=== PATIENT | male | born 1960 | race Caucasian/White ===

== ENCOUNTER 2017-06-04 17:43 | Inpatient (IN) | payer BC ==
[~2017-06-04] VITALS: Ht 188 cm; Wt 138.8 kg
--- NOTE | ~2017-06-04 | HEMODYNAMI ---
PATIENT:JOÃO ARAUJO MEDICAL RECORD: [id number] : 60 LOCATION:[address] [id number] ADMISSION DATE: 06/06/17 Generatedon:06/07/201714:06 Patient name: JOÃO ARAUJO Patient #: [id number] SSN: : 1960 Date of study: 06/07/2017 Page: Of Hemodynamic Procedure Report Patient Data Patient Demographics Procedure consent was obtained First Name: JOÃO Gender: Male Last Name: VAN : 1960 Patient #: [id number] Age: 56 year(s) Race: Unknown Additional ID: [id number] Contact details [address]: [address] [place] [address] State: [place] City: [place] Zip code: [address] Past Medical History Allergies Allergen Reaction Date Comments Reported Other allergy 06/07/2017 N Admission Admission Data Admission Date: 06/06/2017 Admission Time: 12:52 Room #: D2105 Lab Results Lab Result Date: 06/07/2017 Lab Result Time: 0:00 Biochemistry Name Units Result Min Max BUN mg/dl 26 --(----)-* 7 18 Creatinine mg/dl 1.3 --(---*)-- 0.6 1.3 CBC Name Units Result Min Max Hemoglobin g/dl 12 *-(----)-- 13.5 17.5 Procedure Procedure Types Cath Procedure Diagnostic Procedure LHC [facility] w/Coronaries Miscellaneous Procedures Moderate Sedation up to 30 minutes Procedure Description Procedure Date Procedure Date: 06/07/2017 Procedure Start Time: 13:52 Procedure End Time: 14:05 Procedure Staff Name Function Lalit Pierson MD Performing Physician Tash Pastrana RT Scrub João Balbuena RN Nurse Zach Bañuelos RN Collection Systems Technician Gio Garcia RT Monitor Karine Vo RT Monitor Procedure Data Cath Procedure Fluoroscopy Diagnostic fluoroscopy Total fluoroscopy Time: 1.7 time: 1.7 min min Diagnostic fluoroscopy Total fluoroscopy dose: 722 dose: 722 mGy mGy Contrast Material Contrast Material Type Amount (ml) Isovue 300 75 Entry Location Entry Primary Successful Side Size Upsize Upsize Entry Closure Barker ccessful Closure Location (Fr) 1 (Fr) 2 (Fr) Remarks Device Remarks Radial Right 6 Fr Mechanical artery Short Compression Estimated blood loss: 5 ml Diagnostic catheters Device Type Used For End Catheter Placement DIAGNOSTIC Ronald 110cm Multi-vessel 5Fr catheter ([id number]) Angiography Procedure Complications No complications Procedure Medications Medication Administration Route Dosage 0.9% NaCl I.V. 100 ml/hr Oxygen NC 2 l/min Heparin Flush Bag added to field 2 bags (1000units/500ml NS) Lidocaine 2% added to field 20 Radial Cocktail added to field 1 syringe (Verapomil 2mg/Nitro 400mcg/Heparin 1500units) Versed I.V. 2 mg Fentanyl I.V. 100 mcg Radial Cocktail I.A. 1 syringe (Verapomil 2mg/Nitro 400mcg/Heparin 1500units) Hemodynamics Rest HGB: 12 (g/dl) Heart Rate: 88 (bpm) Pressure Samples Time Site Value (mmHg) Purpose Heart Use Rate(bpm) 13:57 LV 64/7,-8 Snapshot 72 13:58 AO 135/72(96) Pullback 86 13:58 LV 143/-4,15 Pullback 86 Gradients Valve Time Site 1 Site 2 Mean SEP/DFP Peak To Heart Use (mmHg) (sec/min) Peak Rate (mmHg) (bpm) Aortic 13:58 LV AO 13 20 8 86 143/-4,15 135/72(96) Calculations Valve P-P Mean Valve Index Valve Source Name Gradient Area Flow (cm2) Aortic 8 13 8 13 Snapshots Pre Cath Intra NCS Post Cath Vital Signs Time Heart Resp SPO2 etCO2 NIBP (mmHg) Rhythm Pain Sedation Rate (ipm) (%) (mmHg) Status Level (bpm) 13:48:24 90 19 96 37 163/95(133) NSR 0 (11) 10(A) , No pain 13:54:18 91 18 93 41.6 162/89(131) NSR 0 (11) 10(A) , No pain 13:59:07 77 19 92 40.8 130/66(95) NSR 0 (11) 10(A) , No pain 14:03:49 71 11 96 39.2 109/59(74) NSR 0 (11) 10(A) , No pain Medications Time Medication Route Dose Verified Delivered Reason Notes Effectiveness by by 13:47:49 0.9% NaCl I.V. 100 João João Per ml/hr Esha Balbuena physician RN RN 13:48:03 Oxygen NC 2 l/min João João Per Esha Balbuena physician RN RN 13:48:14 Heparin Flush added 2 bags João João used for Bag to Lorigan Esha procedure (1000units/500ml field RN RN NS) 13:48:28 Lidocaine 2% added 20ml João João for local to vial Lorigan Esha anesthetic field RN RN 13:48:47 Radial Cocktail added 1 João João used for (Verapomil to syringe Azizaigan Esha procedure 2mg/Nitro field RN RN 400mcg/Heparin 1500units) 13:55:42 Versed I.V. 2 mg João João for sedation Esha Balbuena RN RN 13:55:57 Fentanyl I.V. 100 mcg João João for sedation Esha Balbuena RN RN 13:56:09 Radial Cocktail I.A. 1 João Lalit for (Verapomil syringe Azizaigan Dangelo FRANCISCO vasodilation 2mg/Nitro RN 400mcg/Heparin 1500units) Procedure Log Time Note 13:06:00 Tash Pastrana RT(R) sent for patient. Start room use. 13:06:12 Time tracking: Regular hours 13:06:15 Plan of Care:Hemodynamics will remain stable., Cardiac rhythm will remain stable., Comfort level will be maintained., Respiratory function will remain adequate., Patient/ family verbilizes understanding of procedure., Procedure tolerated without complication., Recovers from procedure without complications.. 13:35:17 Patient received from PCU to CCL 1 Alert and oriented. Tansferred to table in Supine position. 13:35:18 Warm blankets applied, and keeley hugger turned on for patient comfort. 13:35:18 Correct patient and procedure confirmed by team. 13:35:19 Signed procedure consent form obtained from patient. 13:35:20 ECG and BP/O2 sat monitors applied to patient. 13:35:29 H&P Date Dictated: 06/05/2017 Within 30 days and on chart.. 13:35:31 Pre-procedure instructions explained to patient. 13:35:31 Pre-op teaching completed and patient verbalized understanding. 13:35:33 Family in patients room. 13:35:35 Patient NPO since Breakfast. 13:35:56 Patient allergic to Other allergyPCN 13:44:24 Is the patient allergic to Iodine/contrast media? No. 13:44:25 Was the patient premedicated? No 13:44:26 Is patient on blood thinner?No 13:44:27 Patient diabetic? Yes. 13:44:29 If diabetic: On Metformin? No 13:44:31 Previous problem with sedation/anesthesia? No ? 13:44:34 Snore? Yes 13:44:37 Sleep apnea? Yes 13:44:38 Deviated septum? No 13:44:39 Opens mouth fully? Yes 13:44:40 Sticks out tongue? Yes 13:44:42 Airway obstruction? No ? 13:44:47 Dentures? No ? 13:44:50 Pre procedure: right dorsailis pedis pulse 1+ Palpable, but thready & weak; easily obliterated 13:44:54 Pre procedure: left dorsailis pedis pulse 1+ Palpable, but thready & weak; easily obliterated 13:44:58 Patient pain scale 0/10 ?. 13:45:08 IV patent on arrival in left forearm with 0.9% NaCl at [facility]. 13:45:32 Lab Result : BUN 26 mg/dl 13:45:32 Lab Result : Creatinine 1.3 mg/dl 13:45:32 Lab Result : Hemoglobin 12 g/dl 13:45:36 Lab results completed and on chart. 13:45:43 Right Radial & Right Groin area was prepped with chlora-prep and draped in sterile fashion 13:45:44 Alarms reviewed by R. N. 13:45:46 Sharps counted by scrub and verified by R.N. 13:47:17 Baseline sample Acquired. 13:47:19 Vital chart was started 13:47:24 Rhythm: sinus rhythm 13:47:28 Use device set Radial Dx or PCI 13:47:29 ACIST Syringe (74453) opened to sterile field. 13:47:30 Medline Cath Pack ([id number]) opened to sterile field. 13:47:30 Bag Decanter (2002S) opened to sterile field. 13:47:31 SHEATH 6FR Slender ([id number]) opened to sterile field. 13:47:31 DIAGNOSTIC WIRE .035 260cm J wire ([id number]) opened to sterile field. 13:47:33 ACIST Hand Control (67166) opened to sterile field. 13:47:33 ACIST Manifold (75020) opened to sterile field. 13:47:38 TR BAND Large ([id number]) opened to sterile field. 13:47:49 0.9% NaCl 100 ml/hr I.V. was administered by João Balbuena RN; Per physician; 13:48:03 Oxygen 2 l/min NC was administered by João Balbuena RN; Per physician; 13:48:14 Heparin Flush Bag (1000units/500ml NS) 2 bags added to field was administered by João Balbuena RN; used for procedure; 13:48:28 Lidocaine 2% 20ml vial added to field was administered by João Balbuena RN; for local anesthetic; 13:48:47 Radial Cocktail (Verapomil 2mg/Nitro 400mcg/Heparin 1500units) 1 syringe added to field was administered by João Balbuena RN; used for procedure; 13:50:52 Zero performed for pressure channel P1 13:51:09 Right Radial & Right Groin site verified by team. 13:51:27 Physical assessment completed. ASA score P 2 - A patient with mild systemic disease as per Lalit Pierson MD. 13:51:33 --------ALL STOP TIME OUT------ 13:51:52 Sedation plan: IV Moderate Sedation Medication:Versed, Fentanyl 13:51:57 Final Timeout: patient, procedure, and site verified with staff and physician. All members of the team are in agreement. 13:52:44 Procedure started. 13:52:44 Full Disclosure recording started 13:52:58 Local anesthetic to right radial artery with Lidocaine 2% by Lalit Pierson MD.INITIAL ACCESS ONLY 13:53:13 A 6 Fr Short sheath was inserted into the Right Radial artery 13:54:43 A DIAGNOSTIC Ronald 110cm 5Fr catheter ([id number]) was advanced over the wire and used for Multi-vessel Angiography. 13:55:42 Versed 2 mg I.V. was administered by João Balbuena RN; for sedation; 13:55:57 Fentanyl 100 mcg I.V. was administered by João Balbuena RN; for sedation; 13:56:09 Radial Cocktail (Verapomil 2mg/Nitro 400mcg/Heparin 1500units) 1 syringe I.A. was administered by Lalit Pierson MD; for vasodilation; 13:57:41 LV hemodynamics recorded. 13:57:44 LV gram done using ARGUETA 13:57:47 Injector settings: Ml/sec: 5, Volume: 15, 13:57:53 EF : 55 % 13:58:48 LCA angiography performed. 13:58:52 Injector settings: Ml/sec: 3, Volume: 6, 14:00:14 RCA angiography performed. 14:00:17 Injector settings: Ml/sec: 3, Volume: 6, 14:01:25 Catheter removed. 14:01:50 Sheath removed intact; hemostasis achieved with Mechanical Compression to the Right Radial artery. 14:01:53 Procedure ended.(Physican Out) 14:04:21 Fluoroscopy time 01.70 minutes. 14:04:26 Fluoroscopy dose: 722 mGy 14:04:26 Flurop Dose total: 722 14:04:34 Contrast amount:Isovue 300 75ml. 14:04:35 Sharps counted by scrub and verified by R.N. 14:04:38 TR band inflated with 10cc of air. 14:04:40 Insertion/operative site no bleeding no hematoma. 14:04:44 Post right radial artery:stable 14:04:46 Post Procedure Pulses reassessed and unchanged 14:04:49 Post procedure rhythm: unchanged. 14:04:52 Estimated blood loss: 5 ml 14:04:53 Post procedure instruction explained to patient.Patient verbalizes understanding. 14:04:54 Patient needs reinforcement of post procedure teaching. 14:05:06 Procedure type changed to Cath procedure, Diagnostic procedure, LHC, LHC w/Coronaries, Miscellaneous Procedures, Moderate Sedation up to 30 minutes 14:05:06 Procedure and supply charges have been captured, reviewed, submitted and are correct. 14:05:11 Procedure Complication : No complications 14:05:14 Vital chart was stopped 14:05:14 See physician's report for complete and final results. 14:05:17 Report given to [facility]. 14:05:20 Patient transfered to [facility] with Stretcher. 14:05:22 Procedure ended. 14:05:22 Full Disclosure recording stopped 14:05:46 End room use (Document Last) Device Usage Item Name Manufacture Quantity Catalog Hospital Part Current Minimal Lot# / Number Charge Number Stock Stock Serial# Code ACIST Acist 1 88129 057629 372425 670217 20 Syringe Medical (40880) Systems Inc Medline Cath Cardinal 1 [id number] 729732 78187 723954 5 Pack Health ([id number]) Bag Decanter Microtek 1 2001S 720584 42284 233369 5 (2001S) Medical Inc. SHEATH 6FR Terumo 1 [id number] 521344 755524 577381 40 Slender ([id number]) DIAGNOSTIC St Ananda 1 012830 668198 901183 613091 30 WIRE .035 260cm J wire (189892) ACIST Hand Acist 1 34579 072037 025801 725533 5 Control Medical (22596) Systems Inc ACIST Acist 1 94789 605254 014132 783734 5 Manifold Medical (79999) Systems Inc TR BAND Terumo 1 [id number] 408210 251613 435730 40 Large ([id number]) DIAGNOSTIC Terumo 1 40-8585 385824 132027 799362 5 Ronald 110cm 5Fr catheter (947528) Signature Audit [place] Stage Time Signature Unsigned Intra-Procedure 06/07/2017 Tash Victoriano 2:06:19 PM RT(R) Signatures Monitor : Gio Garcia RT Signature : Date : Time : Monitor : Karine Vo Signature : RT Date : Time : [address], [place] [address]
[2017-06-04 18:54] LABS: BASOPHILS 0.3 % (0-2); EOSINOPHILS 6.3 % (0-7); HEMOGLOBIN 12.3 g/dL (13.5-17.5); IMMATURE GRANULOCYTES 0.1 % (0-5); LYMPHOCYTES 22.8 % (15-50); MCH 29.7 pg (26.0-34.0); MCHC 32.4 g/dL (31.0-37.0); MCV 91.8 fL (80.0-100.0); MEAN PLATELET VOLUME 10.6 fL (7.4-10.4); MONOCYTES 8.7 % (2-11); NEUTROPHILS 61.8 % (40-80); RBC 4.14 10x6/uL (4.20-6.10); WBC 9.3 10x3/uL (4.8-10.8)
[2017-06-04 19:10] LABS: ALBUMIN 3.2 g/dL (3.4-5.0); BILIRUBIN - TOTAL 0.8 mg/dL (0.2-1.3); CALCIUM 9.3 mg/dL (8.5-10.1); CREATININE - SERUM 1.5 mg/dL (0.6-1.3)
[2017-06-04 19:11] LABS: PLATELET COUNT 190 10x3/uL (130-400)
[2017-06-04 19:18] LABS: TROPONIN-I 0.019 ng/mL (0.000-0.060)
[2017-06-04 20:04] LABS: APPEARANCE CLEAR (CLEAR); BILIRUBIN NEGATIVE (NEGATIVE); COLOR YELLOW (YELLOW); GLUCOSE 1000 mg/dL (NEGATIVE); KETONE NEGATIVE (NEGATIVE); NITRITE NEGATIVE (NEGATIVE); PROTEIN 2+ mg/dL (NEGATIVE); SPECIFIC GRAVITY 1.015 (1.005-1.020); UROBILINOGEN NORMAL (NORMAL)
[2017-06-04 20:07] LABS: BACTERIA FEW /hpf (NONE SEEN); RED CELLS - URINE OCC /hpf (0-5)
[2017-06-04 20:13] LABS: INR 1.04 (0.85-1.17); PROTIME 13.2 SECONDS (11.6-15.0)
[2017-06-04 20:15] LABS: D-DIMER-QUANTITATIVE 0.75 ug/mLFEU (0.20-0.54)
[2017-06-04 20:28] LABS: CKMB 6.6 U/L (0.0-3.6); CREATINE KINASE 482 UL (21-232)
[2017-06-05] MEDS ORDERED: FUROSEMIDE20 MG PO (01:57)
[2017-06-05] MEDS ORDERED: K-TAB10 MEQ PO (01:57)
[2017-06-05] MEDS ORDERED: LIPITOR80 MG PO (01:58)
[2017-06-05] MEDS ORDERED: ZITHROMAX250 MG PO (01:58)
[2017-06-05] MEDS ORDERED: NORVASC10 MG PO (01:58)
[2017-06-05] MEDS ORDERED: NOVOLOG INJ FLE (01:59)
[2017-06-05] MEDS ORDERED: TRESIBA FLEX INJ 200 SQ (01:59)
[2017-06-05] MEDS ORDERED: JARDIANCE25 MG PO (02:00)
[2017-06-05] MEDS ORDERED: FARXIGA10 MG PO (02:00)
[2017-06-05] MEDS ORDERED: LISINOPRIL TAB 20M PO (02:00)
[2017-06-05] MEDS ORDERED: PRAVACHOL80 MG PO (02:00)
[2017-06-05] MEDS ORDERED: LOPID600 MG PO (02:01)
[2017-06-05 02:13] VITALS: BP 167/85; BMI 42.3
[2017-06-05 04:00] VITALS: BP 167/85
[2017-06-05 08:04] VITALS: BP 169/71
[2017-06-05 12:23] VITALS: BP 135/58
[2017-06-05 13:47] VITALS: Ht 188 cm; Wt 138.8 kg
[2017-06-05 17:27] VITALS: BP 166/65
[2017-06-05 21:16] VITALS: BP 146/65
[2017-06-06 01:23] VITALS: BP 120/62
[2017-06-06] MEDS ORDERED: BENICAR40 MG PO (03:29)
[2017-06-06 05:23] LABS: BASOPHILS 0.3 % (0-2); EOSINOPHILS 7.2 % (0-7); HEMATOCRIT 35.4 % (42.0-54.0); HEMOGLOBIN 11.2 g/dL (13.5-17.5); IMMATURE GRANULOCYTES 0.1 % (0-5); LYMPHOCYTES 31.1 % (15-50); MCH 28.9 pg (26.0-34.0); MCHC 31.6 g/dL (31.0-37.0); MCV 91.5 fL (80.0-100.0); MEAN PLATELET VOLUME 10.6 fL (7.4-10.4); MONOCYTES 9.2 % (2-11); NEUTROPHILS 52.1 % (40-80); PLATELET COUNT 181 10x3/uL (130-400); RBC 3.87 10x6/uL (4.20-6.10); RDW 13.9 % (11.5-14.5)
[2017-06-06 05:37] LABS: WBC 6.9 10x3/uL (4.8-10.8)
[2017-06-06 05:58] VITALS: BP 145/78
[2017-06-06 06:00] LABS: ALBUMIN 2.6 g/dL (3.4-5.0); ANION GAP 12.8 mmol/L (8-16); BILIRUBIN - TOTAL 0.8 mg/dL (0.2-1.3); CALCIUM 8.9 mg/dL (8.5-10.1); CARBON DIOXIDE 26.9 mmol/L (21.0-32.0); CREATININE - SERUM 1.3 mg/dL (0.6-1.3); POTASSIUM - SERUM 3.7 mmol/L (3.5-5.1)
[2017-06-06 08:09] VITALS: BP 132/48
[2017-06-06 11:41] VITALS: BP 139/63
[2017-06-06 16:17] VITALS: BP 188/86
[2017-06-06 21:39] VITALS: BP 145/65
[2017-06-07 00:54] VITALS: BP 169/75
[2017-06-07 05:41] LABS: BASOPHILS 0.3 % (0-2); EOSINOPHILS 6.8 % (0-7); IMMATURE GRANULOCYTES 0.2 % (0-5); LYMPHOCYTES 27.1 % (15-50); MCH 29.5 pg (26.0-34.0); MCHC 32.4 g/dL (31.0-37.0); MCV 90.9 fL (80.0-100.0); MONOCYTES 11.2 % (2-11); NEUTROPHILS 54.4 % (40-80); PLATELET COUNT 187 10x3/uL (130-400); RBC 4.07 10x6/uL (4.20-6.10); RDW 13.6 % (11.5-14.5); WBC 6.5 10x3/uL (4.8-10.8)
[2017-06-07 06:02] VITALS: BP 200/93
[2017-06-07 06:08] LABS: ANION GAP 12.7 mmol/L (8-16); CALCIUM 9.1 mg/dL (8.5-10.1); CARBON DIOXIDE 27.1 mmol/L (21.0-32.0); CREATININE - SERUM 1.3 mg/dL (0.6-1.3); POTASSIUM - SERUM 3.8 mmol/L (3.5-5.1)
[2017-06-07 09:46] VITALS: BP 173/74
[2017-06-07 16:29] VITALS: BP 163/89
[2017-06-07 19:00] VITALS: BP 114/50
[2017-06-08] VITALS: BP 146/64
[2017-06-08 05:07] LABS: BASOPHILS 0.3 % (0-2); EOSINOPHILS 7.4 % (0-7); HEMATOCRIT 36.3 % (42.0-54.0); HEMOGLOBIN 11.5 g/dL (13.5-17.5); IMMATURE GRANULOCYTES 0.2 % (0-5); LYMPHOCYTES 27.7 % (15-50); MCHC 31.7 g/dL (31.0-37.0); MCV 91.7 fL (80.0-100.0); MEAN PLATELET VOLUME 10.7 fL (7.4-10.4); MONOCYTES 8.2 % (2-11); NEUTROPHILS 56.2 % (40-80); PLATELET COUNT 194 10x3/uL (130-400); RBC 3.96 10x6/uL (4.20-6.10); RDW 13.7 % (11.5-14.5); WBC 5.9 10x3/uL (4.8-10.8)
[2017-06-08 05:10] LABS: ANION GAP 11.7 mmol/L (8-16); CALCIUM 8.2 mg/dL (8.5-10.1); CREATININE - SERUM 1.6 mg/dL (0.6-1.3); POTASSIUM - SERUM 3.7 mmol/L (3.5-5.1)
[2017-06-08 08:43] VITALS: BP 164/100
[2017-06-08] MEDS ORDERED: LASIX40 MG PO (08:53)
[2017-06-08] MEDS ORDERED: KLOR-CON 1010 MEQ PO (08:54)
== END 2017-06-08 11:03 | disposition home or self-care (01) | DRG 287 ==
LOC: D.ER 17:43 → OBSVTIME 06-05 00:35 → D.M2 06-05 00:35
PROVIDERS: Emergency Medicine; Family Medicine; Internal Medicine Cardiovascular Disease
PROC: B2151ZZ Fluoroscopy of Left Heart using Low Osmolar Contrast (ICD-10-PCS; 2017-06-07)
PROC: 4A023N7 Measurement of Cardiac Sampling and Pressure, Left Heart, Percutaneous Approach (ICD-10-PCS; 2017-06-07)
PROC: B2111ZZ Fluoroscopy of Multiple Coronary Arteries using Low Osmolar Contrast (ICD-10-PCS; principal; 2017-06-07 10:30)
DX: I11.0 Hypertensive heart disease with heart failure (principal); N17.9 Acute kidney failure, unspecified; I50.33 Acute on chronic diastolic (congestive) heart failure; G47.33 Obstructive sleep apnea (adult) (pediatric); E11.65 Type 2 diabetes mellitus with hyperglycemia

== ENCOUNTER → 2018-01-11 08:07 | Outpatient (CLI) | payer BC ==
[2017-06-05 13:47] VITALS: BMI 42.2
[~2018-01-11 08:07] MED LIST: BENICAR40 MG PO; FARXIGA10 MG PO; FUROSEMIDE20 MG PO; JARDIANCE25 MG PO; K-TAB10 MEQ PO; KLOR-CON 1010 MEQ PO; LASIX40 MG PO; LIPITOR80 MG PO; LISINOPRIL TAB 20M PO; LOPID600 MG PO; NORVASC10 MG PO; NOVOLOG INJ FLE; PRAVACHOL80 MG PO; TRESIBA FLEX INJ 200 SQ; ZITHROMAX250 MG PO
== END | disposition home or self-care (01) ==
LOC: D.US 08:07
DX: I12.9 Hypertensive chronic kidney disease with stage 1 through stage 4 chronic kidney disease, or unspecified chronic kidney disease (principal); N18.3 Chronic kidney disease, stage 3 (moderate); E11.9 Type 2 diabetes mellitus without complications; Z68.39 Body mass index [BMI] 39.0-39.9, adult

== ENCOUNTER 2018-04-09 12:48 | Emergency (ER) | payer BC ==
[~2018-04-09] VITALS: Ht 188 cm; Wt 145.0 kg
[2018-04-09 12:53] VITALS: Ht 188 cm; Wt 145.0 kg
[2018-04-09] MEDS ORDERED: DILAUDID4 MG PO (14:53)
[2018-04-09 23:26] VITALS: BP 183/84
== END 2018-04-09 16:25 | disposition home or self-care (01) ==
LOC: D.ER 12:48
DX: S20.211A Contusion of right front wall of thorax, initial encounter (principal); V86.59XA Driver of other special all-terrain or other off-road motor vehicle injured in nontraffic accident, initial encounter; Y93.89 Activity, other specified; Y92.89 Other specified places as the place of occurrence of the external cause; S42.91XA Fracture of right shoulder girdle, part unspecified, initial encounter for closed fracture; E04.9 Nontoxic goiter, unspecified; E11.65 Type 2 diabetes mellitus with hyperglycemia; R06.02 Shortness of breath; I11.0 Hypertensive heart disease with heart failure; I50.9 Heart failure, unspecified

== ENCOUNTER 2018-04-11 11:41 | Inpatient (IN) | payer BC ==
[~2018-04-11] VITALS: Ht 188 cm; Wt 144.2 kg
--- NOTE | ~2018-04-11 | MORECARE ---
CASE MANAGEMENT DISCHARGE SUMMARY PATIENT: WANDY MENJIVAR UNIT: [id number] ADM DATE: 04/11/18 AGE: 57 : 60 SEX: M ROOM/BED: D.2216 AUTHOR: LILIA,DOC PHYSICIAN: REFERRING PHYSICIAN: FILEMON HOFFMAN MD DATE OF SERVICE: 04/15/18 Discharge Plan Patient Name: WANDY MENJIVAR Facility: [facility]:[place] : 1960 Planned Disposition: Home Anticipated Discharge Date: 04/15/18 Discharge Date: 04/15/2018 Expected LOS: 4 Initial Reviewer: [email or web address] Initial Review Date: 04/11/2018 Generated: 04/15/18 5:21 pm Comments DCP- Discharge Planning Updated by [email or web address]: Luz Elena Vale on 04/15/18 10:[address] Patient Name: WANDY MENJIVAR Admission Status: Urgent Accout number: [id number] Admission Date: 04-11-2018 : 1960 Admission Diagnosis:SYNCOPE AND COLLAPSE Attending: FILEMON HOFFMAN Current LOS: 4 Anticipated DC Date: 04-15-2018 Planned Disposition: Home Primary Insurance: [employer] [facility] Discharge Planning Comments: Received order for discharge. He and his are in the room. He lives with his , she will take him home on discharge. States they feel this is a safe discharge. They decline need for DME or home health. No needs identified. CM will continue to follow and assist with discharge planning/needs. Client Service Supervisor: Luz Elena Vale DCP- Discharge Planning Updated by [email or web address]: Marva Lehman on 04/13/18 12:[address] ATTEMPTED TO SEE PATIENT FOR DISCHARGE PLANNING AND HE WAS IN A PROCEDURE. CM WILL ATTEMPT AT A LATER DATE DCPIA - Discharge Planning Initial Assessment Updated by [email or web address]: Luz Elena Vale on 04/15/18 11:28 am * Is the patient Alert and Oriented? Yes * How many steps to enter\exit or inside your home? 1/0 * PCP Dr. Hooper * [facility] [address] * Preadmission Environment Home with Family * ADLs Independent * Equipment CPAP * List name and contact numbers for known caregivers / representatives who currently or will assist patient after discharge: Erin Menjivar - spouse - [phone] * Verbal permission to speak to the caregivers and representatives has been obtained from the patient. Yes * Community resources currently utilized None * Please name any agencies selected above. [facility] for CPAP * Additional services required to return to the preadmission environment? No * Can the patient safely return to the preadmission environment? Yes * Has this patient been hospitalized within the prior 30 days at any hospital? No Last DP export: 04/15/18 10:31 Patient Name: WANDY MENJIVAR Page 45694 at 1621 All edits/amendments must be made on the electronic document DICTATION DATE: 04/15/181620 BALLOON TESTER: BILL 04/15/181620 RPT#: [id number] DC DATE:04/15/18 STATUS: DIS IN [facility] [address] [place] [address] END OF REPORT
--- NOTE | ~2018-04-11 | MORECARE ---
CASE MANAGEMENT DISCHARGE SUMMARY PATIENT: WANDY ARAUJO UNIT: [id number] ADM DATE: 04/11/18 AGE: 57 : 60 SEX: M ROOM/BED: D.2216 AUTHOR: JAZMÍN RODRIGUES PHYSICIAN: REFERRING PHYSICIAN: FILEMON HOFFMAN MD DATE OF SERVICE: 04/13/18 Discharge Plan Patient Name: WANDY ARAUJO [facility] [facility] 1960 Planned Disposition: Anticipated Discharge Date: Discharge Date: Expected LOS: Initial Reviewer: [email or web address] Initial Review Date: 04/11/2018 Generated: 04/13/18 2:22 pm Comments DCP- Discharge Planning Updated by [email or web address]: Marva Lehman on 04/13/18 12:[address] ATTEMPTED TO SEE PATIENT FOR DISCHARGE PLANNING AND HE WAS IN A PROCEDURE. CM WILL ATTEMPT AT A LATER DATE Patient Name: WANDY ARAUJO Page [id number] at 1322 All edits/amendments must be made on the electronic document DICTATION DATE: 04/13/18 1321 TITLE SEARCHER: BILL 04/13/18 1321 RPT#: [id number] DC DATE: STATUS: ADM IN [facility] [address] [place] [address] END OF REPORT
--- NOTE | ~2018-04-11 | MORECARE ---
CASE MANAGEMENT DISCHARGE SUMMARY PATIENT: WANDY MENJIVAR UNIT: [id number] ADM DATE: 04/11/18 AGE: 57 : 60 SEX: M ROOM/BED: D.2216 AUTHOR: LILIA,DOC PHYSICIAN: REFERRING PHYSICIAN: FILEMON HOFFMAN MD DATE OF SERVICE: 04/15/18 Discharge Plan Patient Name: WANDY MENJIVAR Facility: [facility]:[place] : 1960 Planned Disposition: Home Anticipated Discharge Date: 04/15/18 Discharge Date: Expected LOS: 4 Initial Reviewer: [email or web address] Initial Review Date: 04/11/2018 Generated: 04/15/18 12:31 pm Comments DCP- Discharge Planning Updated by [email or web address]: Luz Elena Vale on 04/15/18 10:[address] Patient Name: WANDY EMNJIVAR Admission Status: Urgent Accout number: [id number] Admission Date: 04-11-2018 : 1960 Admission Diagnosis:SYNCOPE AND COLLAPSE Attending: FILEMON HOFFMAN Current LOS: 4 Anticipated DC Date: 04-15-2018 Planned Disposition: Home Primary Insurance: [employer] [facility] Discharge Planning Comments: Received order for discharge. He and his are in the room. He lives with his , she will take him home on discharge. States they feel this is a safe discharge. They decline need for DME or home health. No needs identified. CM will continue to follow and assist with discharge planning/needs. Dynamo Repairer: Luz Elena Vale DCP- Discharge Planning Updated by [email or web address]: Marva Lehman on 04/13/18 12:[address] ATTEMPTED TO SEE PATIENT FOR DISCHARGE PLANNING AND HE WAS IN A PROCEDURE. CM WILL ATTEMPT AT A LATER DATE DCPIA - Discharge Planning Initial Assessment Updated by [email or web address]: Luz Elena Vale on 04/15/18 11:28 am * Is the patient Alert and Oriented? Yes * How many steps to enter\exit or inside your home? 1/0 * PCP Dr. Hooper * [facility] [address] * Preadmission Environment Home with Family * ADLs Independent * Equipment CPAP * List name and contact numbers for known caregivers / representatives who currently or will assist patient after discharge: Erin Menjivar - spouse - [phone] * Verbal permission to speak to the caregivers and representatives has been obtained from the patient. Yes * Community resources currently utilized None * Please name any agencies selected above. [facility] for [facility]AP * Additional services required to return to the preadmission environment? No * Can the patient safely return to the preadmission environment? Yes * Has this patient been hospitalized within the prior 30 days at any hospital? No Last DP export: 04/13/18 12:22 Patient Name: WANDY MENJIVAR Page 58190 at 1131 All edits/amendments must be made on the electronic document DICTATION DATE: 04/15/18 113 PROJECT ENGINEER CHEMICALS: BILL 04/15/18 1130 RPT#: [id number] DC DATE: STATUS: ADM IN [facility] [address] [place] [address] END OF REPORT
[~2018-04-11 11:41] MED LIST changes: +DILAUDID4 MG PO
[2018-04-11 13:11] LABS: BASOPHILS 0.1 % (0-2); EOSINOPHILS 2.3 % (0-7); HEMATOCRIT 28.2 % (42.0-54.0); IMMATURE GRANULOCYTES 0.3 % (0-5); LYMPHOCYTES 16.9 % (15-50); MCHC 31.9 g/dL (31.0-37.0); MEAN PLATELET VOLUME 10.4 fL (7.4-10.4); MONOCYTES 8.3 % (2-11); NEUTROPHILS 72.1 % (40-80); PLATELET COUNT 161 10x3/uL (130-400); RDW 13.6 % (11.5-14.5); WBC 8.9 10x3/uL (4.8-10.8)
[2018-04-11 13:19] LABS: ANION GAP 14.1 mmol/L (8-16); CALCIUM 8.9 mg/dL (8.5-10.1); CARBON DIOXIDE 23.8 mmol/L (21.0-32.0); CREATININE - SERUM 1.7 mg/dL (0.6-1.3); POTASSIUM - SERUM 4.9 mmol/L (3.5-5.1)
[2018-04-11 13:59] VITALS: BP 183/90; BMI 40.9
[2018-04-11 17:05] VITALS: BP 183/90
[2018-04-11 18:48] VITALS: BP 179/73
[2018-04-11 20:33] VITALS: BP 106/47
[2018-04-12 02:35] VITALS: BP 101/77
[2018-04-12 05:01] VITALS: BP 184/80
[2018-04-12 06:55] LABS: BASOPHILS 0.2 % (0-2); EOSINOPHILS 3.3 % (0-7); HEMOGLOBIN 8.9 g/dL (13.5-17.5); IMMATURE GRANULOCYTES 0.2 % (0-5); LYMPHOCYTES 21.4 % (15-50); MCH 29.9 pg (26.0-34.0); MCHC 31.8 g/dL (31.0-37.0); MEAN PLATELET VOLUME 10.7 fL (7.4-10.4); MONOCYTES 10.4 % (2-11); NEUTROPHILS 64.5 % (40-80); PLATELET COUNT 169 10x3/uL (130-400); RBC 2.98 10x6/uL (4.20-6.10); RDW 13.6 % (11.5-14.5)
[2018-04-12 07:14] LABS: CALCIUM 8.7 mg/dL (8.5-10.1); CREATININE - SERUM 1.8 mg/dL (0.6-1.3)
[2018-04-12 08:43] VITALS: BP 113/55
[2018-04-12] MEDS ORDERED: TRESIBA FL100 UNIT/1 SC (11:29)
[2018-04-12] MEDS ORDERED: HUMALOG 30100 UNITS/ SC ×2 (11:32→11:35)
[2018-04-12 11:57] VITALS: BP 180/77
[2018-04-12 14:03] VITALS: Ht 188 cm; Wt 144.2 kg
[2018-04-12 17:16] VITALS: BP 180/82
[2018-04-12] MEDS ORDERED: NOVOLOG100 UNIT/1 SQ (17:41)
[2018-04-12 21:33] VITALS: BP 148/66
[2018-04-13 01:38] VITALS: BP 154/60
[2018-04-13 04:45] VITALS: BP 164/60
[2018-04-13 08:27] VITALS: BP 147/65
[2018-04-13 15:56] VITALS: BP 126/69
[2018-04-13 20:12] VITALS: BP 147/63
[2018-04-13 21:45] LABS: BASOPHILS 0.1 % (0-2); EOSINOPHILS 0.9 % (0-7); HEMATOCRIT 27.5 % (42.0-54.0); HEMOGLOBIN 8.9 g/dL (13.5-17.5); IMMATURE GRANULOCYTES 0.3 % (0-5); LYMPHOCYTES 11.8 % (15-50); MCH 30.1 pg (26.0-34.0); MCHC 32.4 g/dL (31.0-37.0); MCV 92.9 fL (80.0-100.0); MONOCYTES 11.4 % (2-11); NEUTROPHILS 75.5 % (40-80); PLATELET COUNT 168 10x3/uL (130-400); RBC 2.96 10x6/uL (4.20-6.10); RDW 13.5 % (11.5-14.5); WBC 9.1 10x3/uL (4.8-10.8)
[2018-04-13 21:54] LABS: ANION GAP 16.8 mmol/L (8-16); CALCIUM 8.8 mg/dL (8.5-10.1); CARBON DIOXIDE 21.5 mmol/L (21.0-32.0); POTASSIUM - SERUM 5.3 mmol/L (3.5-5.1)
[2018-04-14] VITALS (7 sets, daily range): BP systolic 97–193; BP diastolic 45–79
[2018-04-15 04:00] VITALS: BP 114/52
[2018-04-15 05:54] LABS: BASOPHILS 0.2 % (0-2); HEMATOCRIT 24.2 % (42.0-54.0); IMMATURE GRANULOCYTES 0.3 % (0-5); LYMPHOCYTES 14.8 % (15-50); MCH 30.2 pg (26.0-34.0); MCHC 33.1 g/dL (31.0-37.0); MCV 91.3 fL (80.0-100.0); NEUTROPHILS 74.7 % (40-80); PLATELET COUNT 195 10x3/uL (130-400); RBC 2.65 10x6/uL (4.20-6.10); RDW 13.5 % (11.5-14.5); WBC 10.9 10x3/uL (4.8-10.8)
[2018-04-15 05:58] LABS: ANION GAP 14.8 mmol/L (8-16); CALCIUM 8.4 mg/dL (8.5-10.1); CARBON DIOXIDE 22.1 mmol/L (21.0-32.0); POTASSIUM - SERUM 4.9 mmol/L (3.5-5.1)
[2018-04-15 09:00] VITALS: BP 204/84
[2018-04-15] MEDS ORDERED: MIRALAX17 GM PO (10:35)
[2018-04-15 12:30] VITALS: BP 101/56
== END 2018-04-15 13:09 | disposition home or self-care (01) | DRG 483 ==
LOC: D.MS 11:41
PROVIDERS: Internal Medicine Nephrology; Orthopaedic Surgery
PROC: 0RRK0J6 Replacement of Left Shoulder Joint with Synthetic Substitute, Humeral Surface, Open Approach (ICD-10-PCS; principal; 2018-04-13 07:30)
DX: S42.302A Unspecified fracture of shaft of humerus, left arm, initial encounter for closed fracture (principal); N17.9 Acute kidney failure, unspecified; Z68.41 Body mass index [BMI] 40.0-44.9, adult; W19.XXXA Unspecified fall, initial encounter; I10 Essential (primary) hypertension; I11.0 Hypertensive heart disease with heart failure; I50.9 Heart failure, unspecified; E11.9 Type 2 diabetes mellitus without complications; E66.9 Obesity, unspecified; E87.5 Hyperkalemia

== ENCOUNTER → 2018-05-25 08:52 | Outpatient (CLI) | payer BC ==
[2018-04-12 14:03] VITALS: BMI 40.8
[~2018-05-25 08:52] MED LIST changes: +HUMALOG 30100 UNITS/ SC; +MIRALAX17 GM PO; +NOVOLOG100 UNIT/1 SQ; +TRESIBA FL100 UNIT/1 SC
== END | disposition home or self-care (01) ==
LOC: D.US 08:52
DX: E04.1 Nontoxic single thyroid nodule (principal)

== ENCOUNTER → 2018-06-15 09:40 | Outpatient (CLI) | payer BC ==
[2018-04-12 14:03] VITALS: BMI 40.8
== END | disposition home or self-care (01) ==
LOC: D.CT 09:40 → D.MRI 10:00
DX: M25.531 Pain in right wrist (principal)

== ENCOUNTER → 2018-07-01 09:14 | Outpatient (CLI) | payer BC ==
[2018-04-12 14:03] VITALS: BMI 40.8
== END | disposition home or self-care (01) ==
LOC: D.RAD 06-29 14:30
DX: M25.531 Pain in right wrist (principal)

== ENCOUNTER 2019-11-28 07:22 | Day surgery (SDC) | payer BC ==
[~2019-11-28] VITALS: Ht 188 cm; Wt 143.2 kg
[2019-11-28 07:58] LABS: ANION GAP 13.8 mmol/L (8-16); CALCIUM 9.5 mg/dL (8.5-10.1); CARBON DIOXIDE 22.9 mmol/L (21.0-32.0); POTASSIUM - SERUM 4.7 mmol/L (3.5-5.1)
[2019-11-28] MEDS ORDERED: TRESIBA FL100 UNIT/1 SC (09:02)
[2019-11-28 09:04] LABS: HEMATOCRIT 35.7 % (42.0-54.0); HEMOGLOBIN 11.5 g/dL (13.5-17.5); MCH 29.7 pg (26.0-34.0); MCHC 32.2 g/dL (31.0-37.0); MCV 92.2 fL (80.0-100.0); MEAN PLATELET VOLUME 10.5 fL (7.4-10.4); RBC 3.87 10x6/uL (4.20-6.10); RDW 14.6 % (11.5-14.5); WBC 8.3 10x3/uL (4.8-10.8)
[2019-11-28] MEDS ORDERED: PROCARDIA XL60 MG PO (09:15)
[2019-11-28 09:25] VITALS: BP 178/70; Ht 188 cm; Wt 143.2 kg
--- NOTE | 2019-11-28 14:36 | NUR ---
1335 IV DC'ED WITH CATH INTACT. DRESSING. Mily IglesiasNLaura 1340 DRESSED. AWAKE & ALERT. GIVEN DISCHARGE INFORMATION INCLUDING: MED REC, RTC APPT., SHEET LISTING NSAIDS TO AVOID & [facility] POST ENDOSCOPIC D/C INSTRUCTIONS. PT VOICED UNDERSTANDING. TO PRIVATE CAR PER WHEELCHAIR BY STAFF. HOME WITH MRS. ARAUJO. Mily ENCARNACION R.N.
--- NOTE | 2019-11-29 16:07 | OP ---
PATIENT NAME: WANDY ARAUJO MEDICAL RECORD: [id number] :60 LOCATION:D.OPS ADMISSION DATE: SURGEON: CHIN CASTILLO MD DATE OF OPERATION: 11/28/2019 PREOPERATIVE DIAGNOSIS: Fecal occult blood positivity. POSTOPERATIVE DIAGNOSES: 1. Fecal occult blood positivity. 2. Possible polyps (2) in the cardia of the stomach. 2. Six colorectal polyps measuring from 4 mm to 2.2 cm. PROCEDURES: 1. Esophagogastroduodenoscopy with antral and distal esophageal biopsies. 2. Hot biopsy forceps polypectomy times 1 in the cardia of the stomach. 3. Total colonoscopy to cecum. 4. Hot biopsy forceps colorectal polypectomies times 5. 5. Rectal and snare polypectomy times 1. SURGEON: Chin Castillo MD AUTOMOBILE REPAIR SERVICE ESTIMATOR: None. BLOOD LOSS: Minimal. ANESTHESIA: IV sedation. COMPLICATIONS: None. The risks, possible complications and alternatives to the procedure were explained to the patient. He elects to proceed. ENDOSCOPIC COURSE: The patient was conveyed to the endoscopy suite electively on 11/28/2019. IV sedation was induced by the anesthesia staff. A bite block was inserted. A gastroscope was inserted into the mouth. It was advanced easily into the hypopharynx. The esophagus was easily intubated as were the stomach and duodenum. Upon withdrawal, retroflexed and angulus views were obtained. Cold endoscopic biopsies of the antrum were obtained to rule out H. pylori. I withdrew into the distal esophagus. Distal esophageal biopsies were obtained to rule out Caballero esophagus. With retroflexion, there was what appeared to be some abnormal tissue that was best identified with narrow band imaging. I felt that these 2 lesions, which are right next to each other, may represent a polyp. Utilizing the hot biopsy forceps polypectomy technique, I removed these 2 questionable polyps. I then unretroflexed the scope and removed it under direct vision. The patient was turned and placed in the Head[place] position. A digital rectal examination was performed. The prostate was symmetric and without nodules. A colonoscope was inserted through the anus. It was easily advanced to the cecum. Upon withdrawal, I irrigated and aspirated extensively. The prep was adequate. I dragged the folds. The pullback was greater than 20-minute pullback. Several of the polyps were sessile and some were semi-pedunculated. The large rectal polyp was semi-pedunculated as well. Five hot biopsy forceps polypectomies were performed. A combination of normal imaging and narrow band OPERATIVE REPORT [id number] WANDY ARAJUO imaging were utilized for the pullback. In the rectum, I then advanced a sclerotherapy needle. A submucosal injection of epinephrine was performed underneath this rectal polyp at 10 cm. The epinephrine was for post-procedure hemostasis. I then advanced an endoscopic snare and was able to snare this at the base of the polyp. I then performed a snare polypectomy technique. The snare was removed. An endoscopic retrieval net was advanced and I was able to grasp the polyp and withdrawn through the anus. I then readvanced the colonoscope. In order to ensure that all the polypoid tissue had been removed, I ablated the surrounding tissue with the argon plasma group reservations coordinator. A retroflexed view was obtained in the rectum. I then unretroflexed the scope and removed it under direct vision. I will see the patient in my office in 2-3 weeks. I will plan for his next colonoscopy to take place in 1 year. The polyps were identified certainly could account for the patient's fecal occult blood positivity. TRANSINT:[id number] Voice Confirmation ID: [id number] DOCUMENT ID: [id number] CHIN CASTILLO MD at 1607 CC: BECKIE FRANCO [id number] DICTATION DATE: 11/28/19 1249 AGENT BROKER: 11/28/19 [facility] 11/28/[address] [address]
== END 2019-11-28 13:40 | disposition home or self-care (01) ==
LOC: D.OPS 07:22
PROVIDERS: Anesthesiology; ATTEND Surgery
DX: R19.5 Other fecal abnormalities (principal); K63.5 Polyp of colon; K31.7 Polyp of stomach and duodenum; E11.9 Type 2 diabetes mellitus without complications; I10 Essential (primary) hypertension; Z79.4 Long term (current) use of insulin